=== PATIENT | female | born 1985 ===

== ENCOUNTER 2017-05-29 18:53 | Emergency (ER) | payer SELFPAY ==
[2017-05-29 19:23] VITALS: BP 105/75; PULSE 99; RESP 16; TEMP 98; O2SAT 98
--- NOTE | 2017-05-29 21:09 | C.PDOC ---
History Of Present Illness 31 year old female who presents to the ER with a complaint of dizziness and a mild headache located to the left cheek and head area that she states improves by pressing on her left molars. Denies fever, chills, nausea, or vomiting. Time Seen by Provider: 05/29/17 20:22 Chief Complaint (Nursing): Headache History Per: Patient History/Exam Limitations: no limitations Onset/Duration Of Symptoms: Days Current Symptoms Are (Timing): Still Present Preceeding Symptoms: None Associated Symptoms: denies: Nausea, Vomiting Recent travel outside of the [place]: No Past Medical History Reviewed: Historical Data, Nursing Documentation, Vital Signs Vital Signs: Last Vital Signs Temp 98.0 F 05/29/17 19:19 Pulse 99 H 05/29/17 19:19 Resp 16 05/29/17 19:19 BP 105/75 05/29/17 19:19 Pulse Ox 98 05/29/17 21:35 - Medical History PMH: No Chronic Diseases Surgical History: No Surg Hx Family History: States: Unknown Family Hx, CAD - Social History Hx Alcohol Use: No Hx Substance Use: No - Immunization History Hx Tetanus Toxoid Vaccination: No Hx Influenza Vaccination: No Hx Pneumococcal Vaccination: No Review Of Systems Constitutional: Negative for: Fever, Chills Gastrointestinal: Positive for: Other (IBS). Negative for: Nausea, Vomiting Neurological: Positive for: Headache, Dizziness Physical Exam - Physical Exam Appears: Non-toxic Skin: Normal Color, Warm, Dry Head: Atraumatic, Normacephalic, Tenderness (To left maxillary sinus on palpation), No Swelling Eye(s): bilateral: Normal Inspection, PERRL, EOMI Oral Mucosa: Moist Teeth: Other (Tenderness to left upper molar w/ vibration) Gingiva: Normal Appearing, No Erythema, No Swelling Neck: Normal, Supple Chest: Symmetrical, No Tenderness Cardiovascular: Rhythm Regular, No Murmur Respiratory: Normal Breath Sounds, No Rales, No Rhonchi, No Wheezing Neurological/Psych: Oriented x3, Normal Speech, Normal Cognition ED Course And Treatment O2 Sat by Pulse Oximetry: 98 (Room air) Pulse Ox Interpretation: Normal Progress Note: Motrin administered. Medical Decision Making Medical Decision Making: consider chronic nasal congestion vs dental issues. Trial Nasonex/nasal steroids and/or decongestants Dentistry eval. No sig s/s noted requiring w/u now. LOW susp of brain injury. Disposition Doctor Will See Patient In The: Office Counseled Patient/Family Regarding: Studies Performed, Diagnosis - Disposition Referrals: [facility] [Outside] [facility] [Outside] John Stevens MD [Staff Provider] - Disposition: HOME/ ROUTINE Disposition Time: 21:08 Condition: GOOD Additional Instructions: consider Decongestant medicines for nasal congestants. Motrin 400-600 mg every 6 hours as needed for dental pain Follow-up with Dr. Stevens- ENT specialist for further eval Follow-up with a local Dentist for eval of your L upper molars. Instructions: Rhinosinusitis (ED), Toothache (ED) Forms: [employer] (Pashto) - Clinical Impression Clinical Impression: Headache - Scribe Statement The provider has reviewed the documentation as recorded by the Scribe Arturo Hurd All medical record entries made by the Scribe were at my direction and personally dictated by me. I have reviewed the chart and agree that the record accurately reflects my personal performance of the history, physical exam, medical decision making, and the department course for this patient. I have also personally directed, reviewed, and agree with the discharge instructions and disposition.
== END 2017-05-29 21:30 | disposition home or self-care (01) ==
LOC: C.ER 18:53
DX: R51 Headache (principal)

== ENCOUNTER 2018-04-17 23:43 | Emergency (ER) | payer SELFPAY ==
--- NOTE | 2018-04-18 00:38 | C.PDOC ---
Time Seen by Provider: 04/17/18 23:53 Chief Complaint (Nursing): Chest Pain History Per: Patient Onset/Duration Of Symptoms: Days (3) Current Symptoms Are (Timing): Still Present Severity: Moderate Quality: "Pain" Associated Symptoms: Dyspnea Modifying Factors: Other Indicated Below Alleviating Factors: None Additional History Per: Prior Records Past Medical History Reviewed: Historical Data, Nursing Documentation, Vital Signs Vital Signs: Last Vital Signs Temp 98.6 F 04/17/18 23:45 Pulse 108 H 04/17/18 23:45 Resp 18 04/17/18 23:45 BP 121/79 04/17/18 23:45 Pulse Ox 96 04/18/18 00:38 - Medical History PMH: No Chronic Diseases Surgical History: No Surg Hx Family History: States: Unknown Family Hx, CAD - Social History Hx Tobacco Use: No Hx Alcohol Use: No Hx Substance Use: No - Immunization History Hx Tetanus Toxoid Vaccination: No Hx Influenza Vaccination: No Hx Pneumococcal Vaccination: No Review Of Systems Except As Marked, All Systems Reviewed And Found Negative. Constitutional: Negative for: Fever, Weakness Cardiovascular: Positive for: Chest Pain Respiratory: Negative for: Hemoptysis Gastrointestinal: Negative for: Abdominal Pain Musculoskeletal: Positive for: Back Pain. Negative for: Neck Pain Skin: Negative for: Rash Neurological: Positive for: Numbness (in b/l hands and feet on/off chronically) . Negative for: Weakness, Seizures Physical Exam - Physical Exam Appears: Non-toxic, No Acute Distress Skin: Normal Color, Warm, Dry, No Rash Head: Atraumatic, Normacephalic Eye(s): bilateral: Normal Inspection, PERRL, EOMI Neck: Normal ROM, Supple Cardiovascular: Rhythm Regular Respiratory: Normal Breath Sounds, No Accessory Muscle Use Gastrointestinal/Abdominal: Soft, No Tenderness Back: No CVA Tenderness Extremity: Normal ROM, No Pedal Edema, No Calf Tenderness Neurological/Psych: Oriented x3, Normal Motor, Normal Sensation ED Course And Treatment - Laboratory Results Result Diagrams: 04/18/18 00:42 ECG: Interpreted By Me, Viewed By Me ECG Rhythm: Sinus Rhythm, Nonspecific Changes Rate From EC O2 Sat by Pulse Oximetry: 96 Pulse Ox Interpretation: Normal Disposition - Disposition Disposition Time: 00:56 Condition: FAIR - Clinical Impression Clinical Impression: Chest pain Physician Patient Turnover Patient Signed Over To: Sapira,Valdi Handoff Comments: to f/up labs and reassess/dispo pt.
[2018-04-18 00:48] LABS: BASO # 0.1 K/uL (0.0-0.2); BASO % 0.6 % (0.0-2.0); EOS # 0.1 K/uL (0.0-0.7); EOS % 0.7 % (0.0-4.0); HEMOGLOBIN 11.2 g/dL (11.0-16.0); LYMPH # 2.4 K/uL (1.0-4.3); LYMPH % 27.2 % (20.0-40.0); MEAN CELL VOLUME 77.4 fL (81.0-99.0); MEAN CORPUSCULAR HEMOGLOBIN 26.2 pg (27.0-31.0); MEAN CORPUSCULAR HGB CONC 33.8 g/dL (33.0-37.0); MEAN PLATELET VOLUME 8.8 fL (7.2-11.7); MONO # 0.5 K/uL (0.0-0.8); MONO % 5.8 % (0.0-10.0); NEUT # 5.8 K/uL (1.8-7.0); NEUT % 65.7 % (50.0-75.0); RBC 4.29 Mil/uL (3.80-5.20); RED CELL DISTRIBUTION WIDTH 13.1 % (11.5-14.5); WHITE BLOOD COUNT 8.8 K/uL (4.8-10.8)
[2018-04-18 00:58] LABS: ALB/GLOB RATIO 1.2 (1.0-2.1); ALBUMIN 4.2 g/dL (3.5-5.0); ALT/SGPT 21 U/L (9-52); AST/SGOT 16 U/L (14-36); BLOOD UREA NITROGEN 12 mg/dL (7-17); CALCIUM 9.5 mg/dl (8.6-10.4); GFR AFRICAN-AMERICAN > 60; GFR NON-AFRICAN AMERICAN > 60
[2018-04-18 01:02] LABS: D DIMER < 200 ng/mlDDU (0-243); INR 1.2; PARTIAL THROMBOPLASTIN TIME 32 SECONDS (21-34)
[2018-04-18 02:40] LABS: HCG,QUALITATIVE URINE NEGATIVE (NEGATIVE)
[2018-04-18 02:44] LABS: SQUAMOUS EPITHIAL 3 /hpf (0-5); URINE BILIRUBIN NEGATIVE (NEGATIVE); URINE BLOOD 1+ (NEGATIVE); URINE CLARITY Clear (Clear); URINE COLOR Yellow (YELLOW); URINE GLUCOSE (UA) NORMAL (Normal); URINE LEUKOCYTE ESTERASE NEG Leu/uL (Negative); URINE PROTEIN NEGATIVE (NEGATIVE); URINE UROBILINOGEN NORMAL mg/dL (0.2-1.0)
[2018-04-18 03:05] VITALS: BP 99/66; RESP 20; TEMP 98.9; O2SAT 97
[2018-04-18 03:23] VITALS: PULSE 87
--- NOTE | 2018-04-18 09:31 | RAD ---
PROCEDURE: CHEST RADIOGRAPH, 1 VIEW HISTORY: chest pain COMPARISON: 09/17/2016 FINDINGS: LUNGS: Clear. PLEURA: No pneumothorax or pleural fluid seen. CARDIOVASCULAR: Normal. OSSEOUS STRUCTURES: No significant abnormalities. VISUALIZED UPPER ABDOMEN: Normal. OTHER FINDINGS: None. IMPRESSION: No active disease. No acute/significant interval changes.
--- NOTE | 2018-04-19 16:46 | CARD ---
APPROVED REPORT EKG Measurement Heart [id number] <Conclusion> Normal sinus rhythm Nonspecific ST and T wave abnormality Abnormal ECG
== END 2018-04-18 02:10 | disposition home or self-care (01) ==
LOC: C.ER 23:43
DX: R07.9 Chest pain, unspecified (principal)

== ENCOUNTER 2018-06-28 23:08 | Emergency (ER) | payer SELFPAY ==
[2018-06-29] MEDS ORDERED: Sodium Chloride 0.9% 1,000 ML IV ONE (00:19)
--- NOTE | 2018-06-29 00:19 | C.PDOC ---
History Of Present Illness 32 year old female presents to the ED c/o epigastric pain associated with vomiting and eructations since Thursday. Patient denies fever, chills, diarrhea, back pain, recent travel, sick contacts. Time Seen by Provider: 06/29/18 00:19 Chief Complaint (Nursing): Abdominal Pain History Per: Patient History/Exam Limitations: no limitations Onset/Duration Of Symptoms: Days Current Symptoms Are (Timing): Still Present Severity: Mild Location Of Pain/Discomfort: Epigastric Radiation Of Pain To:: None Quality Of Discomfort: "Pain" Associated Symptoms: Vomiting. denies: Loss Of Appetite Alleviating Factors: None Recent travel outside of the [place]: No Additional History Per: Patient Abnormal Vaginal Bleeding: No Past Medical History Reviewed: Historical Data, Nursing Documentation, Vital Signs Vital Signs: Last Vital Signs Temp 98.2 F 06/29/18 02:33 Pulse 89 06/29/18 02:33 Resp 18 06/29/18 02:33 BP 111/78 06/29/18 02:33 Pulse Ox 100 06/29/18 02:33 - Medical History PMH: No Chronic Diseases Denies: Chronic Kidney Disease Surgical History: No Surg Hx Family History: States: Unknown Family Hx, CAD - Social History Hx Tobacco Use: No Hx Alcohol Use: No Hx Substance Use: No - Immunization History Hx Tetanus Toxoid Vaccination: No Hx Influenza Vaccination: No Hx Pneumococcal Vaccination: No Review Of Systems Constitutional: Negative for: Fever, Chills Cardiovascular: Negative for: Chest Pain Respiratory: Negative for: Shortness of Breath Gastrointestinal: Positive for: Vomiting, Abdominal Pain Genitourinary: Negative for: Dysuria, Hematuria Musculoskeletal: Negative for: Back Pain Skin: Negative for: Rash Physical Exam - Physical Exam Appears: Non-toxic, No Acute Distress Skin: Warm, Dry Head: Normacephalic Eye(s): bilateral: Normal Inspection Oral Mucosa: Moist Neck: Supple Chest: Symmetrical Cardiovascular: Rhythm Regular Respiratory: No Rales, No Rhonchi, No Wheezing Gastrointestinal/Abdominal: Soft, Tenderness (mild epigastric), No Guarding, No Rebound Extremity: No Tenderness, No Swelling Extremity: Bilateral: Atraumatic, Normal Color And Temperature, Normal ROM Neurological/Psych: Oriented x3, Normal Speech Gait: Steady ED Course And Treatment - Laboratory Results Result Diagrams: 06/29/18 00:45 06/29/18 00:45 O2 Sat by Pulse Oximetry: 98 (ON RA) Pulse Ox Interpretation: Normal Progress Note: PLan: - Labs. - Pepcid 20 mg IVP. - IV fluids. - UA Reevaluation Time: 03:42 Reassessment Condition: Improved Medical Decision Making Medical Decision Making: Upon provider reevaluation patient is feeling better, is medically stable, and requires no further treatment in the ED at this time. Patient will be discharged home with Rx for protonix . Counseling was provided and all questions were answered regarding diagnosis and need for follow up with the referred clinic. There is agreement to discharge plan. Return if symptoms persist or worsen. Disposition Counseled Patient/Family Regarding: Studies Performed, Diagnosis, Need For Followup, Rx Given - Disposition Referrals: [facility] [Outside] [facility] [Outside] Disposition: HOME/ ROUTINE Disposition Time: 00:19 Condition: FAIR Additional Instructions: Please return if symptoms recur Prescriptions: Pantoprazole Sodium [Protonix] 40 mg PO DAILY #15 ect Instructions: Acute Abdomen (Belly Pain), Adult (DC), Gastritis (DC) Forms: [employer] (Eth[place]ian) - Clinical Impression Clinical Impression: Abdominal pain, Gastritis - Scribe Statement The provider has reviewed the documentation as recorded by the Scribe Coleman Lambert All medical record entries made by the Scribe were at my direction and personally dictated by me. I have reviewed the chart and agree that the record accurately reflects my personal performance of the history, physical exam, medical decision making, and the department course for this patient. I have also personally directed, reviewed, and agree with the discharge instructions and disposition.
[2018-06-29 00:49] LABS: BASO # 0.1 K/uL (0.0-0.2); BASO % 0.8 % (0.0-2.0); EOS # 0.8 K/uL (0.0-0.7); EOS % 8.4 % (0.0-4.0); HEMOGLOBIN 12.3 g/dL (11.0-16.0); LYMPH # 3.3 K/uL (1.0-4.3); MEAN CELL VOLUME 77.7 fL (81.0-99.0); MEAN CORPUSCULAR HEMOGLOBIN 26.4 pg (27.0-31.0); MEAN PLATELET VOLUME 8.7 fL (7.2-11.7); MONO # 0.6 K/uL (0.0-0.8); MONO % 5.7 % (0.0-10.0); NEUT # 5.2 K/uL (1.8-7.0); NEUT % 52.1 % (50.0-75.0); NRBC % 0.1 % (0.0-2.0); RBC 4.64 Mil/uL (3.80-5.20); RED CELL DISTRIBUTION WIDTH 13.2 % (11.5-14.5); WHITE BLOOD COUNT 9.9 K/uL (4.8-10.8)
[2018-06-29 00:56] LABS: HCG,QUALITATIVE URINE NEGATIVE (NEGATIVE)
[2018-06-29 00:59] LABS: SQUAMOUS EPITHIAL 8 /hpf (0-5); URINE BILIRUBIN NEGATIVE (NEGATIVE); URINE BLOOD 1+ (NEGATIVE); URINE CLARITY Hazy (Clear); URINE COLOR Yellow (YELLOW); URINE GLUCOSE (UA) NORMAL (Normal); URINE LEUKOCYTE ESTERASE TRACE Leu/uL (Negative); URINE PROTEIN NEGATIVE (NEGATIVE); URINE UROBILINOGEN NORMAL mg/dL (0.2-1.0)
[2018-06-29 01:04] LABS: ALB/GLOB RATIO 1.2 (1.0-2.1); ALBUMIN 4.6 g/dL (3.5-5.0); ALT/SGPT 16 U/L (9-52); AST/SGOT 16 U/L (14-36); BLOOD UREA NITROGEN 13 mg/dL (7-17); CALCIUM 9.3 mg/dl (8.6-10.4); GFR NON-AFRICAN AMERICAN > 60; LIPASE 59 U/L (23-300)
[2018-06-29] MEDS ORDERED: Iodixanol 320 MG/ML 100 ML BOTTLE IV ONE (01:51)
[2018-06-29 02:33] VITALS: TEMP 98.2
[2018-06-29 03:44] VITALS: O2SAT 98
[2018-06-29 03:58] VITALS: BP 106/72; PULSE 97; RESP 16
--- NOTE | 2018-06-29 09:04 | CT ---
Date of service: 06/29/2018 PROCEDURE: CT Abdomen and Pelvis without intravenous contrast HISTORY: Mid epigastric abdominal pain. COMPARISON: None. TECHNIQUE: Multiple contiguous axial images were performed through the abdomen and pelvis with the use of intravenous contrast. Subsequently, sagittal and coronal reformatted images were obtained. Radiation dose: Total exam DLP = 303 mGy-cm. This CT exam was performed using one or more of the following dose reduction techniques: Automated exposure control, adjustment of the mA and/or kV according to patient size, and/or use of iterative reconstruction technique. FINDINGS: LOWER THORAX: 3 millimeter subpleural pulmonary nodule along the lateral aspect the right lower lobe. 2.6 millimeter pulmonary nodule within lateral aspect of the left lower lobe on series 3, image 2. LIVER: Unremarkable. No gross lesion or ductal dilatation. GALLBLADDER AND BILE DUCTS: Unremarkable. PANCREAS: Unremarkable. No gross lesion or ductal dilatation. SPLEEN: Unremarkable. ADRENALS: Unremarkable. No mass. KIDNEYS AND URETERS: Unremarkable. No hydronephrosis. No solid mass. VASCULATURE: Unremarkable. No aortic aneurysm. BOWEL: Under distended versus mildly thickened loops of mid to distal small bowel may represent a mild enteritis. Clinical correlation. APPENDIX: No findings to suggest acute appendicitis. PERITONEUM: Unremarkable. No free fluid. No free air. LYMPH NODES: Unremarkable. No enlarged lymph nodes. BLADDER: Unremarkable. REPRODUCTIVE: Unremarkable. BONES: No acute fracture. OTHER FINDINGS: None. IMPRESSION: 1. Under distended versus mildly thickened loops of mid to distal small bowel may represent a mild enteritis. Clinical correlation. 2. 3 millimeter subpleural pulmonary nodule along the lateral aspect of the right lower lobe. 2.6 millimeter pulmonary nodule within lateral aspect of the left lower lobe on series 3, image 2. 3-6 month interval followup maybe helpful if clinically indicated. These findings were preliminarily reported at 3:40 a.m. on 06/29/[address] Veto Thomas from [employer].
== END 2018-06-29 03:58 | disposition home or self-care (01) ==
LOC: C.ER 23:08
DX: K29.70 Gastritis, unspecified, without bleeding (principal); R10.13 Epigastric pain
CPT/HCPCS: 74177; 80053; 81001; 83690; 84703; 85025; 96361; 96374; 99284; J7030; Q9967